=== PATIENT | male | born 1985 | race African-American/Black ===

== ENCOUNTER 2019-01-08 11:04 | Emergency (ER) | payer SELFPAY ==
[2019-01-08] MEDS ORDERED: METHYLPREDNISOLONE 125 MG INJ ONE (12:44)
--- NOTE | 2019-01-08 13:01 | EDPHYS ---
Physician Documentation [facility] Name: Seun Hazel Jr Age: 33 yrs Sex: Male : 1985 Arrival Date: 01/08/2019 Time: 11:07 Bed 10 Private MD: ED Physician Davion Segundo HPI: 01/08 11:49 This 33 yrs old Black Male presents to ER via Ambulatory with complaints of Knee Pain, pm1 Low Back Pain, Sore Throat. 11:49 The patient presents with sore throat. The patient describes throat pain as raw, pm1 scratchy. Onset: The symptoms/episode began/occurred 1 week(s) ago. Severity of symptoms: in the emergency department the symptoms are actually worse. Modifying factors: The symptoms are alleviated by nothing, the symptoms are aggravated by swallowing, Patient's oral intake status: good unaware of sick contact. Associated signs and symptoms: Pertinent negatives cough, earache, fever, flu-like symptoms, headache, vomiting. The patient has not recently seen a physician. 3 weeks of left knee pain and low back pain. Denies injury. left knee pain with weight bearing and extension. Historical: - Allergies: 11:23 No Known Allergies; hb - Home Meds: 11:23 None [Active]; hb - PMHx: 11:23 None; hb - PSHx: 11:23 None; hb - Immunization history:: Adult Immunizations up to date. - Social history:: Smoking status: Patient/guardian denies using tobacco. - Ebola Screening: : No symptoms or risks identified at this time. ROS: 11:49 Constitutional: Negative for fever, chills, and weight loss, Eyes: Negative for injury, pm1 pain, redness, and discharge. 11:49 Neck: Negative for injury, pain, and swelling, Cardiovascular: Negative for chest pain, palpitations, and edema, Respiratory: Negative for shortness of breath, cough, wheezing, and pleuritic chest pain, Abdomen/GI: Negative for abdominal pain, nausea, vomiting, diarrhea, and constipation. 11:49 Skin: Negative for injury, rash, and discoloration, Neuro: Negative for headache, weakness, numbness, tingling, and seizure. 11:49 ENT: Positive for sore throat, Negative for ear pain. 11:49 Back: Positive for of the sacrum, pain. 11:49 MS/extremity: Positive for pain, of the left knee. Exam: 11:49 Constitutional: This is a well developed, well nourished patient who is awake, alert, pm1 and in no acute distress. Head/Face: Normocephalic, atraumatic. Eyes: Pupils equal round and reactive to light, extra-ocular motions intact. Lids and lashes normal. Conjunctiva and sclera are non-icteric and not injected. Cornea within normal limits. Periorbital areas with no swelling, redness, or edema. 11:49 Neck: Trachea midline, no thyromegaly or masses palpated, and no cervical lymphadenopathy. Supple, full range of motion without nuchal rigidity, or vertebral point tenderness. No Meningismus. Chest/axilla: Normal chest wall appearance and motion. Nontender with no deformity. No lesions are appreciated. Cardiovascular: Regular rate and rhythm with a normal S1 and S2. No gallops, murmurs, or rubs. Normal PMI, no JVD. No pulse deficits. Respiratory: Lungs have equal breath sounds bilaterally, clear to auscultation and percussion. No rales, rhonchi or wheezes noted. No increased work of breathing, no retractions or nasal flaring. Abdomen/GI: Soft, non-tender, with normal bowel sounds. No distension or tympany. No guarding or rebound. No evidence of tenderness throughout. Back: No spinal tenderness. No costovertebral tenderness. Full range of motion. Skin: Warm, dry with normal turgor. Normal color with no rashes, no lesions, and no evidence of cellulitis. 11:49 ENT: External ear(s): are unremarkable, Ear canal(s): are normal, TM's: are normal, Posterior pharynx: is normal, no erythema, no exudate, no peritonsilar mass, no pooling of secretions, no swelling, peritonsillar mass, is not appreciated, pooling of secretions, is not appreciated. 11:49 Musculoskeletal/extremity: Extremities: grossly normal except: noted in the left knee: tenderness, There is no evidence of decreased ROM, swelling, Circulation is intact in all extremities. 11:49 Neuro: Orientation: is normal, Motor: is normal, moves all fours. Vital Signs: 11:22 BP 158 / 96; Pulse 91; Resp 16; Temp 97.2; Pulse Ox 100% on R/A; Weight 129.27 kg; hb Height 6 ft. 2 in. (187.96 cm); Pain 01/07; 11:22 Body Mass Index 36.59 (129.27 kg, 187.96 cm) hb MDM: 12:26 Patient medically screened. pm1 12:58 Data reviewed: vital signs. Data interpreted: Pulse oximetry: on room air is 100 %. pm1 Interpretation: normal. 12:58 Counseling: I had a detailed discussion with the patient and/or guardian regarding: the pm1 historical points, exam findings, and any diagnostic results supporting the discharge/admit diagnosis, lab results, radiology results, the need for outpatient follow up, a family practitioner, a orthopedic surgeon, to return to the emergency department if symptoms worsen or persist or if there are any questions or concerns that arise at home. 01/08 11:22 Order name: Strep; Complete Time: 12:26 01/08 11:49 Order name: Throat Culture [facility] 01/08 12:31 Order name: Knee Left 3 View XRAY pm1 Administered Medications: 12:56 Drug: SOLU-Medrol 125 mg Route: IM; Site: left deltoid; iw 13:15 Follow up: Response: No adverse reaction iw Disposition: 01/08/19 13:00 Discharged to Home. Impression: Acute pharyngitis, Pain in left knee. - Condition is Stable. - Discharge Instructions: Pharyngitis, Knee Pain. - Prescriptions for Diclofenac Sodium 75 mg Oral Tablet Sustained Release - take 1 tablet by ORAL route 2 times per day; 30 tablet. - Work release form, Medication Reconciliation Form, Thank You Letter, Antibiotic Education, Prescription Opioid Use form. - Follow up: Emergency Department; When: As needed; Reason: Worsening of condition. Follow up: Private Physician; When: 2 - 3 days; Reason: Recheck today's complaints, Continuance of care, Re-evaluation by your physician. - Problem is new. - Symptoms have improved. Addendum: 01/10/2019 06:53 Co-signature as Attending Physician, Davion Segundo MD. g s Signatures: Dispatcher [employer] EDMD Rafaela Crooks RN RN Israel Sanchez, UTILITY BILL COLLECTOR UTILITY BILL COLLECTOR pm1 Sandy Serna RN RN Davion Segundo MD MD Corrections: (The following items were deleted from the chart) 01/08 13:07 13:00 01/08/2019 13:00 Discharged to Home. Impression: Acute pharyngitis; Pain in left iw knee. Condition is Stable. Forms are Medication Reconciliation Form, Thank You Letter, Antibiotic Education, Prescription Opioid Use. Follow up: Emergency Department; When: As needed; Reason: Worsening of condition. Follow up: Private Physician; When: 2 - 3 days; Reason: Recheck today's complaints, Continuance of care, Re-evaluation by your physician. Problem is new. Symptoms have improved. pm1
--- NOTE | 2019-01-08 13:01 | ER ---
Nurse's Notes [facility] Name: Seun Hazel Jr Age: 33 yrs Sex: Male : 1985 Arrival Date: 01/08/2019 Time: 11:07 Bed 10 Private MD: Diagnosis: Acute pharyngitis;Pain in left knee Presentation: 01/08 11:21 Presenting complaint: Sore throat and sinus congestion x 1 week. Also reports left knee hb pain x 1 week, denies injury. Transition of care: patient was not received from another setting of care. Onset of symptoms was January 08, 2019. Risk Assessment: Do you want to hurt yourself or someone else? Patient reports no desire to harm self or others. Initial Sepsis Screen: Does the patient meet any 2 criteria? No. Patient's initial sepsis screen is negative. Does the patient have a suspected source of infection? No. Patient's initial sepsis screen is negative. Care prior to arrival: None. 11:21 Method Of Arrival: Ambulatory hb 11:21 Acuity: SALLIE 4 hb Triage Assessment: 12:00 General: Appears in no apparent distress. Behavior is calm, cooperative. iw Historical: - Allergies: 11:23 No Known Allergies; hb - Home Meds: 11:23 None [Active]; hb - PMHx: 11:23 None; hb - PSHx: 11:23 None; hb - Immunization history:: Adult Immunizations up to date. - Social history:: Smoking status: Patient/guardian denies using tobacco. - Ebola Screening: : No symptoms or risks identified at this time. Screenin:00 Abuse screen: Denies threats or abuse. Denies injuries from another. Nutritional iw screening: No deficits noted. Tuberculosis screening: No symptoms or risk factors identified. Fall Risk None identified. Assessment: 12:00 General: Appears in no apparent distress. Behavior is calm, cooperative. Pain: iw Complains of pain in left knee. Neuro: Level of Consciousness is awake, alert, obeys commands, Oriented to person, place, time, situation, Moves all extremities. Full function. Respiratory: Airway is patent Respiratory effort is even, unlabored, EENT: Throat is clear with gag reflex present. Vital Signs: 11:22 BP 158 / 96; Pulse 91; Resp 16; Temp 97.2; Pulse Ox 100% on R/A; Weight 129.27 kg; hb Height 6 ft. 2 in. (187.96 cm); Pain 10/10; 11:22 Body Mass Index 36.59 (129.27 kg, 187.96 cm) hb ED Course: 11:07 Patient arrived in ED. rg4 11:22 Triage completed. hb 11:22 Arm band placed on. hb 11:27 Strep Sent. hb 11:54 Rafaela Crooks, RN is Primary Nurse. iw 12:00 Patient has correct armband on for positive identification. iw 12:20 Israel Sanchez NP is PHCP. pm1 12:20 Davion Segundo MD is Attending Physician. pm1 13:02 Knee Left 3 View XRAY In Process Unspecified. EDMS 13:06 No provider procedures requiring assistance completed. Patient did not have IV access iw during this emergency room visit. Administered Medications: 12:56 Drug: SOLU-Medrol 125 mg Route: IM; Site: left deltoid; iw 13:15 Follow up: Response: No adverse reaction iw Outcome: 13:00 Discharge ordered by . pm1 13:06 Discharged to home ambulatory. iw 13:06 Condition: good 13:06 Discharge instructions given to patient, Instructed on discharge instructions, follow up and referral plans. Demonstrated understanding of instructions, follow-up care, medications, Prescriptions given X 1. 13:07 Patient left the ED. iw Signatures: Dispatcher [employer] Rafaela Armendariz RN RN iw Israel Sanchez NP DISPLAYER MERCHANDISE pm1 Sandy Serna RN RN hb Garcia, Rubi rg4 Corrections: (The following items were deleted from the chart) 15:06 13:06 Discharge instructions given to patient, Instructed on discharge instructions, iw follow up and referral plans. Demonstrated understanding of instructions, follow-up care, medications, Prescriptions given X 2, iw
--- NOTE | 2019-01-08 13:08 | RAD REPORT ---
EXAM DESCRIPTION: RAD - Knee Left 3 View - 01/08/2019 1:02 pm CLINICAL HISTORY: Left knee pain FINDINGS: No fracture or dislocation is seen. Mild medial joint space narrowing
[2019-01-08 13:11] VITALS: BP 158/96; TEMP 97.2; O2SAT 100
== END 2019-01-08 13:07 | disposition home or self-care (01) ==
LOC: ER 11:04
DX: J02.9 Acute pharyngitis, unspecified (principal); M25.562 Pain in left knee
CPT/HCPCS: 87070; 87081; 96372; 99284; J2930